=== PATIENT | male | born 1965 | race Caucasian/White ===

== ENCOUNTER 2022-08-08 13:19 | Emergency (ER) | payer OTHER, SELFPAY ==
[2022-08-08 13:26] VITALS: BP 166/99; PULSE 90; RESP 20; TEMP 36.6; O2SAT 98
--- NOTE | 2022-08-08 13:34 | ED.SKABFB ---
HPI - Skin/Abscess/Foreign Bdy General Chief complaint: Skin/Abscess/Foreign Body Stated complaint: left ear bite History of Present Illness HPI narrative: PATIENT PRESENTS WITH INSECT BITE TO LEFT EAR. NO BULLSEYE BUTWAS OUT IN TIMBER AND IS AFRAID HE MAY HAVE BEEN BIT BY A TICK. Related Data Home Medications Medication Instructions Recorded Confirmed levothyroxine 175 mcg tablet mcg 08/08/22 metoprolol succinate 25 mg mg PO 08/08/22 tablet,extended release 24 hr pantoprazole 40 mg tablet,delayed mg PO 08/08/22 release Allergies Allergy/AdvReac Type Severity Reaction Status Date / Time hydromorphone [From Dilaudid] Allergy Dyspnea / Verified 08/08/22 13:31 SOB Review of Systems Review of Systems: CONSTITUTIONAL: DENIES FEVER, CHILLS, OR SWEATS. EYES: DENIES VISUAL CHANGES, REDNESS, OR DISCHARGE. ENT: DENIES RHINORRHEA, CONGESTION, SORE THROAT, OR OTALGIA. CARDIOVASCULAR: DENIES CHEST PAIN, PALPITATIONS, OR EDEMA. RESPIRATORY: DENIES COUGH OR DYSPNEA. GASTROINTESTINAL: DENIES ABDOMINAL PAIN, NAUSEA, VOMITING, OR DIARRHEA. GENITOURINARY: DENIES DYSURIA OR HEMATURIA. SKIN: DENIES RASH OR ITCHING. MUSCULOSKELETAL: DENIES BACK PAIN, JOINT PAIN, OR MYALGIA. NEUROLOGIC: DENIES HEADACHE, NUMBNESS, OR WEAKNESS. PSYCHIATRIC: DENIES ANXIETY OR DEPRESSION. PMFSH Comments AT TIME OF SIGNATURE, AGREE WITH NURSING PAST MEDICAL, SURGICAL, SOCIAL AND FAMILY HISTORY. THERE IS NO RELEVANT FAMILY HISTORY PERTINENT TO THE PRESENTING COMPLAINT Exam Narrative: GENERAL: WELL-APPEARING, WELL-NOURISHED, AND IN NO ACUTE DISTRESS. HEAD: NORMOCEPHALIC, ATRAUMATIC. EYES: PERRLA AND EOMI. ENT: NARES CLEAR, NO RHINORRHEA OR EPISTAXIS. MUCOUS MEMBRANES MOIST. NECK: SUPPLE. CHEST: CLEAR TO AUSCULTATION. NO RESPIRATORY DISTRESS. HEART: REGULAR RATE AND RHYTHM. NO MURMUR HEARD. NORMAL PERIPHERAL PULSES. ABDOMEN: SOFT, NONTENDER, NONDISTENDED, NORMAL ACTIVE BOWEL SOUNDS. EXTREMITIES: NORMAL RANGE OF MOTION. NO EDEMA. SKIN: WARM, DRY, NO RASH. UPPER EDGE OF LEFT PINNA EDEMATOUS CONSISTNT WITH INFECTED INSECT BITE NO DRAINAGE AND NO STREAKING NEURO: NO FOCAL DEFICITS. ALERT AND ORIENTED X3. JENNIFER COMA SCALE EYE OPENING: SPONTANEOUS 4 JENNIFER COMA SCALE MOTOR: OBEYS COMMANDS 6 JENNIFER COMA SCALE VERBAL: ORIENTED 5 JENNIFER COMA SCALE TOTAL 15 Course Course Level of Care: Express Care Visit Vital Signs Vital signs: Vital Signs Temperature 36.6 C 08/08/22 13:26 Pulse Rate 90 08/08/22 13:26 Respiratory Rate 20 08/08/22 13:26 Blood Pressure 166/99 H 08/08/22 13:26 Pulse Oximetry 98 08/08/22 13:26 Oxygen Delivery Room Air 08/08/22 13:26 Temperature 36.6 C 08/08/22 13:26 Pulse Rate 90 08/08/22 13:26 Respiratory Rate 20 08/08/22 13:26 Blood Pressure 166/99 H 08/08/22 13:26 Pulse Oximetry 98 08/08/22 13:26 Oxygen Delivery Room Air 08/08/22 13:26 PLEASE TEA SCHEDULE A FOLLOWUP VISIT WITH YOUR PERSONAL PHYSICIAN FOR FURTHER EVALUATION AND TREATMENT. INCLUDING RECHECK AND DISCUSSION OF YOUR BLOOD PRESSURE. IF YOUR SYMPTOMS PERSIST, CHANGE OR WORSEN SIGNIFICANTLY BEFORE YOU CAN CONTACT YOUR PERSONAL PHYSICIAN THEN PLEASE, WITHOUT DELAY, GO TO THE EMERGENCY DEPARTMENT FOR FURTHER EVALUATION Discharge Plan Discharge Clinical Impression: Insect bites, Cellulitis Patient Disposition: Home, Self-Care Condition: Stable Instructions: Antibiotic Form, Insect Bite or Sting (ED) Additional Instructions: MEDICATION PRESRIBED WARM EPSOM SALT SOAKS TO AREA DISCUSSED FOLLOW UP WITH PCP FOR RE EVALUATION IF ANY NEW OR WORSENING OF SYMPTOMS GO TO ER IMMEDIATELY Prescriptions: New doxycycline monohydrate 100 mg capsule 100 mg PO BID 7 Days Qty: 14 0RF No Action levothyroxine 175 mcg tablet pantoprazole 40 mg tablet,delayed release (DR/EC) PO metoprolol succinate 25 mg tablet extended release 24 hr PO Follow-up/Referrals:
== END 2022-08-08 13:43 | disposition home or self-care (01) ==
PROVIDERS: Emergency Provider Nurse Practitioner Family; PCP Internal Medicine
DX: S00.462A Insect bite (nonvenomous) of left ear, initial encounter (principal); H60.12 Cellulitis of left external ear; W57.XXXA Bitten or stung by nonvenomous insect and other nonvenomous arthropods, initial encounter
CPT/HCPCS: 99213; G0463

== ENCOUNTER 2023-01-24 08:11 | Emergency (ER) | payer OTHER, SELFPAY ==
[2023-01-24 08:21] VITALS: BP 149/97; PULSE 83; RESP 18; TEMP 36.6; O2SAT 100
[2023-01-24 08:26] VITALS: BP 149/97; PULSE 83; RESP 18; TEMP 36.6; O2SAT 100
--- NOTE | 2023-01-24 08:33 | ED.GENADULT ---
HPI - General Adult General Chief complaint: Dental/Oral Stated complaint: tooth pain Source: patient Mode of arrival: ambulatory Limitations: no limitations History of Present Illness HPI narrative: Patient presents for right sided facial swelling since yesterday. Swelling is along the right mandible. Denies any fever, chills, nausea, vomiting, sinus congestion/drainage or dental pain per se. However he feels as though he has a dental infection. He took tylenol for his symptoms. He does not smoke. Related Data Home Medications Medication Instructions Recorded Confirmed levothyroxine 175 mcg tablet 175 mcg PO DAILY 08/08/22 metoprolol succinate 25 mg 25 mg PO DIRECTED 08/08/22 tablet,extended release 24 hr pantoprazole 40 mg tablet,delayed 40 mg PO DIRECTED 08/08/22 release Allergies Allergy/AdvReac Type Severity Reaction Status Date / Time hydromorphone [From Dilaudid] Allergy Dyspnea / Verified 01/24/23 08:25 SOB Review of Systems Review of Systems: CONSTITUTIONAL: Denies fever, chills, or sweats. EYES: Denies visual changes, redness, or discharge. ENT: Reports right sided facial swelling. Denies rhinorrhea, dental pain, congestion, sore throat, or otalgia. CARDIOVASCULAR: Denies chest pain, palpitations, or edema. RESPIRATORY: Denies cough or dyspnea. GASTROINTESTINAL: Denies abdominal pain, nausea, vomiting, or diarrhea. GENITOURINARY: Denies dysuria or hematuria. SKIN: Denies rash or itching. MUSCULOSKELETAL: Denies back pain, joint pain, or myalgia. NEUROLOGIC: Denies headache, numbness, dizziness, or weakness. PSYCHIATRIC: Denies anxiety or depression. [facility] Past Medical History Medical History Esophageal cancer Thyroid disorder Surgical History Surgical History No pertinent past surgical history Family History Family History Mother No problems noted. Social History Social History Smoking status: Never smoker Substance use: never Gender identity (if verbalized by the patient): Male Spiritual care concerns: No Exam Narrative: GENERAL: Well-appearing, well-nourished, and in no acute distress. HEAD: Normocephalic, atraumatic. EYES: PERRLA and EOMI. ENT: Nares clear, no rhinorrhea or epistaxis. Mucous membranes moist. Oropharynx without tonsillar hypertrophy exudate or other lesions. There is swelling along the right mandible. No trismus. I do not appreciate any dental fracture, visible/palpable abscess. Bilateral TMs pearly delgadillo nonbulging NECK: Supple. No adenopathy or masses. No carotid bruits or JVD CHEST: Clear to auscultation. No respiratory distress. No wheezes rales or rhonchi HEART: Regular rate and rhythm. No murmur heard. Normal peripheral pulses. ABDOMEN: Soft, nontender, nondistended, normal active bowel sounds. EXTREMITIES: Normal range of motion. No edema. SKIN: Warm, dry, no rash. NEURO: No focal deficits. Alert and oriented x3. PSYCH: Normal mood and affect. Course Course Emergency Course: This is a 58-year-old male who presented for evaluation of right-sided facial swelling. I do not appreciate an abscess on exam. He has responded well to PCN in the past so will provide a script for that. He denies any pain. He may take ibuprofen for swelling. Follow up with dentist and primary care provider. Go to the ER for worsening symptoms. Pt in agreement with plan of care. Level of Care: Express Care Visit Vital Signs Vital signs: Vital Signs Temperature 36.6 C 01/24/23 08:21 Pulse Rate 83 01/24/23 08:21 Respiratory Rate 18 01/24/23 08:21 Blood Pressure 149/97 H 01/24/23 08:21 Pulse Oximetry 100 01/24/23 08:21 Oxygen Delivery Room Air 01/24/23 08:21 Tempera
== END 2023-01-24 08:36 | disposition home or self-care (01) ==
PROVIDERS: Emergency Provider Nurse Practitioner; PCP Internal Medicine
DX: K04.7 Periapical abscess without sinus (principal); Z85.01 Personal history of malignant neoplasm of esophagus; E07.9 Disorder of thyroid, unspecified
CPT/HCPCS: 99213; G0463

== ENCOUNTER 2023-03-24 08:16 | Emergency (ER) | payer OTHER, SELFPAY ==
[2023-03-24 08:23] VITALS: BP 150/100; PULSE 82; RESP 16; TEMP 36.5; O2SAT 100
--- NOTE | 2023-03-24 08:25 | ED.GENADULT ---
HPI - General Adult General Chief complaint: Dental/Oral Stated complaint: Toothache Source: patient, RN notes reviewed and old records reviewed Mode of arrival: ambulatory Limitations: no limitations History of Present Illness HPI narrative: 58-year-old male patient presents to [facility] with complaints of right lower jaw swelling, pain that started 2-3 days ago. Patient states has noted dental issue does have a dentist appointment on April 07. Patient states dentist wanted anything with infection MD complaint: dental pain Onset (ago): day(s) (2-3) Related Data Home Medications Medication Instructions Recorded Confirmed levothyroxine 175 mcg tablet 175 mcg PO DAILY 08/08/22 metoprolol succinate 25 mg 25 mg PO DIRECTED 08/08/22 tablet,extended release 24 hr pantoprazole 40 mg tablet,delayed 40 mg PO DIRECTED 08/08/22 release Allergies Allergy/AdvReac Type Severity Reaction Status Date / Time hydromorphone [From Dilaudid] Allergy Dyspnea / Verified 01/24/23 08:25 SOB Review of Systems Constitutional: Constitutional: Reports no additional constitutional complaints, Denies body ache(s), Denies chills, Denies fatigue, Denies fever(s) and Denies headache(s) Eyes: Eyes: Reports no additional eye complaints and Denies blurry vision ENT: Reports system reviewed and no additional complaints, except as documented, Reports dental pain, Denies vertigo, Denies dizziness, Denies ear discharge, Denies otalgia, Denies facial pain, Denies headache(s), Reports mouth pain, Denies nasal congestion, Denies nasal discharge, Denies sinus pain, Denies sinus pressure and Denies sore throat Cardiovascular: Cardiovascular: Reports no additional cardiovascular complaints, Denies chest pain, Denies chest pain at rest, Denies rapid heart rate and Denies dyspnea Respiratory: Respiratory: Reports no additional respiratory complaints, Denies chest congestion, Denies cough, Denies pain on inspiration, Denies pain with cough and Denies dyspnea Gastrointestinal: Gastrointestinal: Denies abdominal pain, Denies diarrhea, Denies nausea and Denies vomiting Integumentary/Breasts: Skin/Breast: Denies rash Neurologic: Reports system reviewed and no additional complaints, except as documented, Denies vertigo, Denies dizziness and Denies headache(s) Endocrine: Endocrine: Denies fatigue [facility] Past Medical History Medical History Esophageal cancer Thyroid disorder Surgical History Surgical History No pertinent past surgical history Family History Family History Mother No problems noted. Social History Social History Smoking status: Never smoker Substance use: never Gender identity (if verbalized by the patient): Male Spiritual care concerns: No Comments At the time of my signature, I reviewed and agree with the nursing past medical, surgical, social, and family history. There is no relevant family history pertinent to the patient complaint. Exam Const: General: cooperative, healthy appearing, no acute distress and well nourished Nutritional Appearance: well nourished Orientation/consciousness: patient oriented x3 Limitations: no limitations HENMT: Head: normal to inspection and normocephalic Ears: external ears normal, TM's normal bilaterally, mastoids normal and Abnormal EAC present Face/Nose/Sinus: normal facial exam Face and sinus: normal facial exam Mouth: Yes Normal oral and palatal mucosa present, Yes oropharynx normal and Yes moist mucous membranes Teeth and gingiva: abnormal tooth and associated gingiva (gingiva swelling at #30) Teeth image: 1. swelling Throat: posterior oropharynx normal, tonsils normal, uvula midline and no uvular edema Eyes: General: appear
== END 2023-03-24 09:03 | disposition home or self-care (01) ==
PROVIDERS: Emergency Provider Registered Nurse; PCP Internal Medicine
DX: K04.7 Periapical abscess without sinus (principal); E03.9 Hypothyroidism, unspecified; I10 Essential (primary) hypertension; Z85.01 Personal history of malignant neoplasm of esophagus
CPT/HCPCS: 99213; G0463

== ENCOUNTER 2023-06-22 07:23 | Outpatient (CLI) | payer OTHER, SELFPAY ==
--- NOTE | 2023-06-24 10:10 | WPDHOMESLEEP ---
Sleep Study - Home Unattended Date of Study: 06/22/23 Ordering Provider: Paco Hines DO Interpreting Provider: Janelle Guzman MD Home Sleep Study Type: Watch PAT Height: 1.75 m Weight: 92.986 kg Body Mass Index: 30.2 Neck Circumference (inches): 16.5 [place]: 9 Reason for Sleep Study Difficulty falling asleep and staying asleep Sleep History Haider Khan is a 58-year-old man with difficulty getting to sleep and staying asleep. There is a history of sleep disorders in the family, brother and sister have sleep apnea. He rarely awakens from sleep feeling short of breath. He frequently wakes at night with heartburn, belching or coughing.??He rarely snores, never snores loudly enough that others complain. He never has trouble sleeping when he has a cold. He never wakes up gasping for breath during the night. He rarely has breathing problems at night reported to him by others. He never sweats excessively at night. He occasionally notices his heart pounding or beating irregularly during the night. He occasionally falls asleep during the day. He never falls asleep involuntarily, never falls asleep while driving. He never experiences loss of muscle tone with strong emotion. 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 He never feels paralyzed on waking or falling asleep. He occasionally experiences vivid dreams upon waking or falling asleep. He never feels afraid of going to sleep. He occasionally has nightmares. He occasional recalls his dreams. He frequently has thoughts racing through his mind. He never feels sad or depressed. He occasionally feels anxiety. He occasionally notices parts of his body jerk. He rarely kicks during the night. He rarely feels crawling or aching feelings in his legs. He rarely feels leg pain at night. He never has morning jaw pain nor does he grind his teeth at night. He frequently feels bothered by pain during the day, rarely awakened by pain during the night. He frequently wakes up feeling stiff in the morning, and he frequently wakes feeling sore or achy. He frequently awakens with pain in his neck, spine, or joints. Normal bedtime is 8:00 p.m., falling asleep within an hour or longer, waking between 6 and 10 times during the night, staying awake 5 minutes. When he awakens at night he tries to go back to sleep and often is able to do so within 5 minutes. His normal wake time is 5:00 a.m.. On weekends, his bedtime is 10:00 p.m. and his wake time is 7:00 a.m.. He does not take naps in the afternoon or evening. A short nap lasting 10-15 minutes is not refreshing. He is usually drowsy for 2 hours after waking. He feels better in the afternoon compared to other times of day. Habits:??Tobacco: Never Caffeine: 4 servings per day. Alcohol: none Recreational substances: none [facility] Past Medical History Medical History BMI 31.0-31.9,adult Esophageal cancer Essential hypertension, benign GERD with esophagitis Thyroid disorder Surgical History Surgical History Hx of esophagectomy No pertinent past surgical history Family History Family History Mother Thyroid cancer Diabetes mellitus Hypertension Heart disease Father COPD (chronic obstructive pulmonary disease) Acute myocardial infarction Sibling COPD (chronic obstructive pulmonary disease) Acute myocardial infarction Bleeding in brain due to brain aneurysm Sibling Diabetes mellitus Social History Social History Smoking status: Former smoker Second hand tobacco smoke exposure: Yes Alcohol intake: never Substance use: never Substance use type: does not use Do You Feel Safe in your Home?: Yes Lack of Transportation: No [place]
[2023-06-24 11:46] VITALS: BMI 30.2
== END 2023-06-23 13:40 | disposition home or self-care (01) ==
PROVIDERS: PCP Family Medicine; Visit Provider Internal Medicine Cardiovascular Disease
DX: G47.10 Hypersomnia, unspecified (principal)
CPT/HCPCS: 95800; 95806

== ENCOUNTER 2023-06-24 07:59 | Outpatient (CLI) | payer OTHER, SELFPAY ==
--- NOTE | ~2023-06-24 | NM_ITS ---
EXAMINATION: NM loco stress w perfusion DATE: 06/24/2023 12:37 INDICATION: Atrial flutter. TECHNIQUE: Rest images were obtained following intravenous administration of 9.08 mCi Tc99m tetrofosm in (Myoview). The patient was infused intravenously with Lexiscan (regadenoson). Then, 29.0 mCi Tc99m tetrofosmin (Myoview) was administered intravenously, and supine and prone stress images were obtain ed. Data was reconstructed into short axis and horizontal and vertical long axis SPECT images. Gated SPECT images were also obtained. COMPARISON: None. FINDINGS: There is no definite reversible or fixed perfusion abnormality to suggest ischemia or infar ction. There is no segmental wall motion abnormality. Left ventricular ejection fraction measures > 70%. IMPRESSION: 1. No definite ischemia or infarct. 2. Normal left ventricular ejection fraction measuring >70%. Reviewed, dictated and finalized at location A.
--- NOTE | 2023-06-24 08:45 | ECHO_ITS ---
Patient Info Name: Haider Khan Age: 58 years : 1965 Gender: Male Ht: 69 in Wt: 205 lbs BSA: 2.15 m2 HR: 65 bpm BP: 157 / 123 mmHg Technical Quality: Fair Exam Date: 06/24/2023 8:59 AM Exam Location: Echo Lab Patient Status: Outpatient Admit Date: 06/24/2023 Staff Ordering Physician: Paco Hines DO Attending Provider: Paco Hines DO Referring Physician: Donny HAYS; Exam Type: CA echo dop color flow w con Study Info Indications - I48.92 Atrial Flutter Complete two-dimensional, color flow and Doppler transthoracic echocardiogram is performed. Summary 1. Complete two-dimensional, color flow and Doppler transthoracic echocardiogram is performed. 2. Left ventricular chamber dimension is normal. 3. Left ventricular systolic function is normal, estimated at 60-65%. 4. The left ventricular diastolic function is grade I diastolic dysfunction. 5. E/e' 10 is mildly elevated. 6. Left atrial chamber dimension is moderately enlarged. 7. Right atrial chamber dimension is moderately enlarged. 8. There is mild aortic valve sclerosis. 9. There is mild to moderate aortic valve regurgitation. 10. There is mild to moderate mitral valve regurgitation. 11. There is mild tricuspid valve regurgitation. 12. No pulmonary hypertension, estimated pulmonary arterial systolic pressure is 29 mmHg. 13. There is trace pulmonic regurgitation. Left Ventricle E/e' 10 is mildly elevated. Left ventricular chamber dimension is normal. Left ventricular systolic function is normal, estimated at 60-65%. The left ventricular diastolic function is grade I diastolic dysfunction. Right Ventricle Right ventricular chamber dimension is normal. Right ventricular systolic function is normal. Left Atria Left atrial chamber dimension is moderately enlarged. Right Atria Right atrial chamber dimension is moderately enlarged. Aortic Valve The aortic valve is trileaflet. There is mild aortic valve sclerosis. There is no aortic valve stenosis. There is mild to moderate aortic valve regurgitation. Pulmonic Valve There is trace pulmonic regurgitation. Mitral Valve There is no mitral valve stenosis. There is mild to moderate mitral valve regurgitation. Tricuspid Valve There is mild tricuspid valve regurgitation. No pulmonary hypertension, estimated pulmonary arterial systolic pressure is 29 mmHg. Pericardium/Pleural There is no pericardial effusion. Inferior Vena Cava Normal inferior vena cava with >50% collapse upon inspiration consistent with normal right atrial pressure, 5 mmHg. Aorta The aortic root size at the sinus of Valsalva is normal. Left Ventricular Outflow Tract Name Value Normal LVOT 2D LVOT Diameter 2.03 cm LVOT Doppler LVOT Peak Gradient 2 mmHg LVOT Mean Gradient 1 mmHg LVOT VTI 14.07 cm LVOT VTI/AV VTI Ratio 0.81 LVOT Stroke Volume 45.51 ml LVOT CO 3.62 l/min LVOT CI 1.68 L/min/m2 Pulmonic Valve Name
--- NOTE | 2023-06-24 09:54 | EST_ITS ---
Patient Info Name: Haider Khan Age: 58 years : 1965 Gender: Male Ht: 69 in Wt: 209 lbs BSA: 2.18 m2 HR: 71 bpm BP: 158 / 111 mmHg Heart Rhythm: Atrial Fibrillation Exam Date: 06/24/2023 11:33 AM Exam Location: Echo Lab Patient Status: Outpatient Admit Date: 06/24/2023 Staff Ordering Physician: Paco Hines DO Attending Provider: Paco Hines DO Exercise Technologist: Ronit Rossi CT Exam Type: CA stress loco w NM Study Info Indications I48.1 - Persistent atrial fibrillation A regadenoson stress test was performed. Summary 1. 1. Negative lexiscan stress test for ischemic ST changes by ECG criteria. 2. 2. Baseline hypertension. 3. 3. Nuclear scan to follow and will be reported separately. Please correlate with it. 4. 4. Patient informed of the above results. Protocol: Lexiscan Stress ECG Details Stage: REST Duration (min): 0 min : 53 sec HR (bpm): 74 SBP (mmHg): 158 DBP (mmHg): 111 Stage: REST Duration (min): 11 min : 39 sec HR (bpm): 79 SBP (mmHg): 158 DBP (mmHg): 111 Stage: STAGE 1 Duration (min): 1 min : 0 sec HR (bpm): 88 SBP (mmHg): 157 DBP (mmHg): 101 Stage: RECOVERY Duration (min): 1 min : 0 sec HR (bpm): 84 SBP (mmHg): 157 DBP (mmHg): 101 Stage: RECOVERY Duration (min): 2 min : 0 sec HR (bpm): 76 SBP (mmHg): 157 DBP (mmHg): 101 Stage: RECOVERY Duration (min): 3 min : 0 sec HR (bpm): 79 SBP (mmHg): 149 DBP (mmHg): 99 Stage: RECOVERY Duration (min): 3 min : 17 sec HR (bpm): 81 SBP (mmHg): 149 DBP (mmHg): 99 Rest HR: 79 bpm Peak HR: 103 bpm Rest Sys BP: 158 mmHg Peak Sys BP: 157 mmHg Max Pred HR: 164 bpm % Max Pred HR: 63 % Target HR: 139 bpm Max RPP: 16,171 bpm*mmHg Termination Reason: Completed protocol Cardiac Symptoms: Shortness of breath Total Time: 1 min : 0 sec Rest O[place]a BP: 111 mmHg Peak [place] BP: 101 mmHg Total Dose: 0.4 mg Resting ECG Atrial fibrillation. Stress ECG No ST changes. Arrhythmias None. Report Signatures
== END 2023-06-24 08:00 | disposition home or self-care (01) ==
PROVIDERS: PCP Family Medicine; Visit Provider Internal Medicine Cardiovascular Disease
DX: I48.92 Unspecified atrial flutter (principal); I48.19 Other persistent atrial fibrillation; I34.0 Nonrheumatic mitral (valve) insufficiency; I35.1 Nonrheumatic aortic (valve) insufficiency; I36.1 Nonrheumatic tricuspid (valve) insufficiency
CPT/HCPCS: 78452; 93017; 93306; A9502; C8929; J2785

== ENCOUNTER 2023-10-15 18:06 | Emergency (ER) | payer OTHER, SELFPAY ==
[2023-10-15 18:11] VITALS: BP 130/79; PULSE 89; RESP 20; TEMP 36.3; O2SAT 98
--- NOTE | 2023-10-15 18:12 | ED.SKABFB ---
HPI - Skin/Abscess/Foreign Bdy General Chief complaint: Skin/Abscess/Foreign Body Stated complaint: Tick Check Time Seen by Provider: 10/15/23 18:14 Source: patient, RN notes reviewed and old records reviewed Mode of arrival: ambulatory Limitations: no limitations History of Present Illness HPI narrative: 58-year-old male presents to the [facility] with concerns that he pulled a tick off his right axilla area and left flank area today. Reports the 1 to the left flank area was engorged. Related Data Home Medications Medication Instructions Recorded Confirmed milk thistle 175 mg capsule 175 mg PO DAILY 06/03/23 10/15/23 sildenafil 100 mg tablet 100 mg PO DAILY PRN Sexual Activity 06/03/23 10/15/23 Allergies Allergy/AdvReac Type Severity Reaction Status Date / Time hydromorphone [From Dilaudid] Allergy Dyspnea / Verified 08/06/23 08:28 SOB Review of Systems Review of Systems: All systems reviewed & are unremarkable except as noted in HPI and below Constitutional: Constitutional: Reports no additional constitutional complaints Eyes: Eyes: Reports no additional eye complaints ENT: Reports system reviewed and no additional complaints, except as documented Cardiovascular: Cardiovascular: Reports no additional cardiovascular complaints, Denies chest pain and Denies dyspnea Respiratory: Respiratory: Reports no additional respiratory complaints, Denies chest congestion, Denies cough and Denies dyspnea Gastrointestinal: Gastrointestinal: Reports no additional gastrointestinal complaints, Denies abdominal pain, Denies nausea and Denies vomiting Musculoskeletal: Musculoskeletal: Reports no additional musculoskeletal complaints Integumentary/Breasts: Skin/Breast: Reports as per HPI Neurologic: Reports system reviewed and no additional complaints, except as documented Psychiatric: Psychiatric: Reports no additional psychiatric complaints Allergic/Immunologic: Allergic/Immunologic: Reports no additional allergic/immunologic complaints REPLACED BY [facility] Past Medical History Medical History BMI 31.0-31.9,adult Esophageal cancer Essential hypertension, benign GERD with esophagitis Thyroid disorder Surgical History Surgical History Hx of esophagectomy No pertinent past surgical history Family History Family History Mother Thyroid cancer Diabetes mellitus Hypertension Heart disease Father COPD (chronic obstructive pulmonary disease) Acute myocardial infarction Sibling COPD (chronic obstructive pulmonary disease) Acute myocardial infarction Bleeding in brain due to brain aneurysm Sibling Diabetes mellitus Social History Social History Smoking status: Former smoker Second hand tobacco smoke exposure: Yes Alcohol intake: never Substance use: never Substance use type: does not use Do You Feel Safe in your Home?: Yes Lack of Transportation: No Lack of Food: Never True Current Housing: I Have Housing Concerned About Future Housing: No Difficulty Paying Gas/Electric Bills: No Difficulty Paying for Meds: No Currently Unemployed: No Education: High School Diploma/GED Difficulty w/ Childcare or Family Care: YES Living arrangements: alone Occupation/Education: occupation 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 There is no relevant family history pertinent to the patient complaint. Exam Const: General: cooperative, healthy appearing, comfortable, no acute distress, well developed, alert and well nourish
[2023-10-15 18:22] VITALS: BP 130/79; PULSE 89; RESP 20; TEMP 36.3; O2SAT 98
== END 2023-10-15 18:30 | disposition home or self-care (01) ==
PROVIDERS: Emergency Provider Nurse Practitioner
DX: S40.861A Insect bite (nonvenomous) of right upper arm, initial encounter (principal); S30.861A Insect bite (nonvenomous) of abdominal wall, initial encounter; W57.XXXA Bitten or stung by nonvenomous insect and other nonvenomous arthropods, initial encounter; Z87.891 Personal history of nicotine dependence; I10 Essential (primary) hypertension; K21.00 Gastro-esophageal reflux disease with esophagitis, without bleeding; Z85.01 Personal history of malignant neoplasm of esophagus
CPT/HCPCS: 99213; G0463

== ENCOUNTER 2024-01-19 12:53 | Emergency (ER) | payer OTHER, SELFPAY ==
[2024-01-19 13:01] VITALS: BP 161/92; PULSE 98; RESP 20; TEMP 36.4; O2SAT 100
--- NOTE | 2024-01-19 13:34 | ED_ITS ---
HPI - Male Genitourinary General Chief complaint: Urogenital-Male Stated complaint: hard time urinating/nausea Time Seen by Provider: 01/19/24 13:25 Source: patient, RN notes reviewed and old records reviewed Mode of arrival: ambulatory Limitations: no limitations History of Present Illness HPI Narrative: 59 year old male presents to [facility] care with complaints of right lower abdominal pain/cramping which started this morning with right flank pain, nausea and vomiting and decreased urine output. Patient states he noted noted his urine to be dark in color when he awoke this morning and first voided. He states that he went to work and symptoms have just progressed. Patient reports he can only void a small amount even though he feels like he needs to urinate more. Patient states that he has not had any fevers, chills or sweat, has taken some Tylenol with no improvement in symptoms. MD Complaint: other (right lower abdomen pain, right flank pain, nausea and decreased urine ) Onset (ago): hour(s) (this morning) Radiation: right flank and abdomen (right lower abdomen) Severity scale (1-10): 4 Related Data Home Medications Medication Instructions Recorded Confirmed flecainide 50 mg tablet 50 mg PO DAILY 01/19/24 01/19/24 Allergies Allergy/AdvReac Type Severity Reaction Status Date / Time hydromorphone [From Dilaudid] AdvReac Intermediate Dyspnea / Verified 01/19/24 13:28 SOB Review of Systems Review of Systems: CONSTITUTIONAL: Denies fever, chills, or sweats. CARDIOVASCULAR: Denies chest pain, palpitations, or edema. RESPIRATORY: Denies cough or dyspnea. GASTROINTESTINAL: Reports right flank pain radiating to right lower abdominal pain, positive for nausea, vomiting, no diarrhea. GENITOURINARY: Reports no dysuria, frequency, urgency. Reports right flank pain no visible hematuria. only able to void in small amounts but feels he needs to go more. SKIN: Denies rash or itching. MUSCULOSKELETAL: Denies back pain or myalgia. positive for right CVA tenderness NEUROLOGIC: Denies headache All systems reviewed & are unremarkable except as noted in HPI and below PMFSH Past Medical History Medical History BMI 31.0-31.9,adult Esophageal cancer Essential hypertension, benign GERD with esophagitis Thyroid disorder Surgical History Surgical History Hx of esophagectomy No pertinent past surgical history Family History Family History Mother Thyroid cancer Diabetes mellitus Hypertension Heart disease Father COPD (chronic obstructive pulmonary disease) Acute myocardial infarction Sibling COPD (chronic obstructive pulmonary disease) Acute myocardial infarction Bleeding in brain due to brain aneurysm Sibling Diabetes mellitus Social History Social History Smoking status: Former smoker Second hand tobacco smoke exposure: Yes Alcohol intake: never Substance use: never Substance use type: does not use Do You Feel Safe in your Home?: Yes Lack of Transportation: No Lack of Food: Never True Current Housing: I Have Housing Concerned About Future Housing: No Difficulty Paying Gas/Electric Bills: No Difficulty Paying for Meds: No Currently Unemployed: No Education: High School Diploma/GED Difficulty w/ Childcare or Family Care: YES Living arrangements: alone Occupation/Education: occupation 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 There is no relevant family history pertinent to the presenting complaint Exam Narrative: GENERAL: Well-appearing, well-nourished, and in no acute distress. HEAD: Normocephalic, atraumatic. NECK: Supple.no lymphadenopathy CHEST: Clear to auscultation. No respiratory distress. SAO2 100% on room air HEART: Regular rate and rhythm. No murmur heard. Normal peripheral pulses. ABDOMEN: Soft,tender right lower abdomen no McBurney point tenderness, positive for nausea and vomiting, nondistended, normal active bowel sounds. Positive for right CVA tenderness EXTREMITIES: Normal range of motion. No edema. SKIN: Warm, dry, no rash. NEURO: No focal deficits. Alert and oriented x3., Course Course Emergency Course: Patient is aware of diagnosis, understands and agrees to treatment plan.? Anticipatory guidance given.? Patient agrees to follow-up as directed and is aware of reasons to seek care at the emergency department. Portions of this record may have been created with voice recognition software Level of Care: Express Care Visit Vital Signs Vital signs: Vital Signs Temperature 36.4 C 01/19/24 13:01 Pulse Rate 98 01/19/24 13:01 Respiratory Rate 20 01/19/24 13:01 Blood Pressure 161/92 H 01/19/24 13:01 Pulse Oximetry 100 01/19/24 13:01 Oxygen Delivery Room Air 01/19/24 13:01 Temperature 36.4 C 01/19/24 13:01 Pulse Rate 98 01/19/24 13:01 Respiratory Rate 20 01/19/24 13:01 Blood Pressure 161/92 H 01/19/24 13:01 Pulse Oximetry 100 01/19/24 13:01 Oxygen Delivery Room Air 01/19/24 13:01 Transfer Transfered to: [facility]) Transportation: Other (per private car with friend to ED [facility]) Transfer rationale: Right flank pain with pain to right lower abdomen, blood in urine needs higher level of care. Accepting physician: Dr Rivera Transfer comments: To [facility] per private care with friend MDM - Male Genitourinary MDM Narrative Medical decision making narrative: [id number] Call placed to [facility] with condition update, VS, PMH reviewed with Chris DENT with Dr Rivera accepting patient for transfer. Differential Diagnosis Differential diagnosis: Likely urinary tract infection, urethritis and other (ureterolithiasis, renal colic, ) Medical Records Attestation: I reviewed the patient's medical records. Lab Data Attestation: I reviewed the patient's lab results. Lab results narrative: reviewed urine dip blood 3+, trace protein, specific gravity 1.030 Labs: Lab Results 01/19/24 Range/Units 13:20 POC Urine Color Yellow POC Urine Clarity Clear POC Urine pH 5.5 POC Ur Specif [place] 1.030 POC Urine Protein Trace (Negative) POC Ur Glucose (UA) Negative (Negative) POC Urine Ketones Negative (Negative) POC Urine Blood 3+ (Negative) POC Urine Nitrite Negative (Negative) POC Urine Bilirubin Negative (Negative) POC Urine Urobilinogen 0.2 POC U Leukocyte Esteras Negative (Negative) Discharge Plan Discharge Clinical Impression: Acute right flank pain, Right lower quadrant abdominal pain Patient Disposition: Acute Care Hospital Condition: Stable Prescriptions: No Action flecainide 50 mg tablet 50 mg PO DAILY levothyroxine 150 mcg tablet 150 mcg PO DAILY Qty: 90 0RF metoprolol succinate 50 mg tablet extended release 24 hr 50 mg PO DAILY Qty: 90 3RF aspirin 325 mg tablet,delayed release (DR/EC) 325 mg PO DAILY Qty: 30 0RF pantoprazole 40 mg tablet,delayed release (DR/EC) 40 mg PO DAILY Qty: 90 0RF amlodipine 5 mg tablet See Rx Instructions .ROUTE .COMPLEX Qty: 30 5RF Dose Instruction: Take 1 tablet by mouth once daily Rx Instructions: Take 1 tablet by mouth once daily Follow-up/Referrals: Cristóbal Lozada MD [Primary Care Provider] - Time of Disposition: 13:41 Quality Morrison Coma Scale Eyes: Open Verbal: Oriented and Alert Motor: Follows Commands Suze Coma Total Score: 15
[2024-01-19 13:52] LABS: EDUAAPPEAR Clear; EDUABILI Negative (Negative); EDUABLOOD 3+ (Negative); EDUACOLOR1 Yellow; EDUAGLUCOSE Negative (Negative); EDUAKETONE Negative (Negative); EDUALEUKO Negative (Negative); EDUANITRATE Negative (Negative); EDUAPH 5.5; EDUAPROTEIN Trace (Negative); EDUAUROBILI 0.2
--- NOTE | 2024-01-19 14:37 | PC.NURSE ---
NO UC ORDERED PER PROVIDER
== END 2024-01-19 13:36 | disposition short-term general hospital (02) ==
PROVIDERS: Emergency Provider Registered Nurse; PCP Family Medicine
DX: R10.31 Right lower quadrant pain (principal); R10.9 Unspecified abdominal pain; Z87.891 Personal history of nicotine dependence; I10 Essential (primary) hypertension; K21.00 Gastro-esophageal reflux disease with esophagitis, without bleeding; Z85.01 Personal history of malignant neoplasm of esophagus
CPT/HCPCS: 81003; 99212; G0463

== ENCOUNTER 2024-02-25 10:11 | Outpatient (CLI) | payer OTHER, SELFPAY ==
[2024-02-25 11:24] LABS: Alanine Aminotransferase 31 U/L (6-50); Albumin Level 4.7 g/dL (3.5-5.1); Alkaline Phosphatase 127 U/L (38-126); Anion Gap 5 mmol/L (4-12); Aspartate Amino Transferase 37 U/L (17-59); Bilirubin,Total 0.8 mg/dL (0.2-1.3); Blood Urea Nitrogen 12 mg/dL (9-20); Calcium 9.5 mg/dL (8.4-10.2); Carbon Dioxide 29 mmol/L (22-30); Chloride 104 mmol/L (98-107); Cholesterol 224 mg/dL (0-200); Estimated Glomerular Filt Rate > 60; Glucose 109 mg/dL (65-110); HDL Direct 59 mg/dL; Potassium 4.7 mmol/L (3.4-5.0); Sodium 138 mmol/L (137-145); Triglycerides 171 mg/dL (<150)
[2024-02-25 11:36] LABS: LDL Cholesterol Direct 121 mg/dL
[2024-02-25 12:10] LABS: Thyroid Stimulating Hormone Reflex 0.042 uIU/mL (0.465-4.68)
[2024-02-25 12:59] LABS: Free T4 Free Thyroxine Reflex 1.94 ng/dL (0.78-2.19)
== END 2024-02-25 10:12 | disposition home or self-care (01) ==
PROVIDERS: PCP Family Medicine; Visit Provider Internal Medicine Cardiovascular Disease
DX: E03.9 Hypothyroidism, unspecified (principal); E78.5 Hyperlipidemia, unspecified
CPT/HCPCS: 36415; 80053; 80061; 84439; 84443; 84480

== ENCOUNTER 2024-05-23 14:57 | Outpatient (CLI) | payer OTHER, SELFPAY ==
[2024-05-23 16:43] LABS: Free T4 Free Thyroxine 1.47 ng/dL (0.78-2.19)
[2024-05-23 16:55] LABS: Magnesium 2.2 mg/dL (1.6-2.3)
[2024-05-23 17:25] LABS: Prostate Specific Antigen 3.2 ng/mL (< OR = 4.0); Thyroid Stimulating Hormone 0.818 uIU/mL (0.465-4.680)
== END 2024-05-23 14:58 | disposition home or self-care (01) ==
LOC: ANHLAB 14:59
PROVIDERS: PCP Family Medicine; Visit Provider Nurse Practitioner
DX: E03.9 Hypothyroidism, unspecified (principal); K21.00 Gastro-esophageal reflux disease with esophagitis, without bleeding; C15.9 Malignant neoplasm of esophagus, unspecified; Z12.5 Encounter for screening for malignant neoplasm of prostate
CPT/HCPCS: 36415; 82607; 83735; 84153; 84439; 84443; G0103

== ENCOUNTER 2024-05-29 00:48 | Day surgery (SDC) | payer OTHER, SELFPAY ==
[2024-05-18 14:50] VITALS: BMI 30.2
--- OUTSIDE RECORDS SUMMARY | 2024-05-29 00:51 | XMS_ITS | Encounter Summary ---
Author Organization [facility] Address [address] [place] [address] Phone Care Team Providers Care Automatic Lathe Tender Name Role Phone Vic Villanueva MD Primary Care Provider [phone] Vik Stevens MD Unavailable + Kaiser Mike MD Unavailable [phone] Provider, None Primary Care Provider Unavailabl e Reason for Visit * Reason Comments Medication Refill Encounter Details Date Type Department Care Team (Late st Contact Info) Description 06/18/2021 Refill [facility] - Primary Care - [place] [address] [place] [address] Vic Villanueva MD [address] [place] [address] Medication Refill Social History Tobacco Use Types Packs/Day Years Used Date Smoking Tobacco: Former Cigarettes 3 25 0 11/11/1975 - 11/10/2000 Smokeless Tobacco: Never Alcohol Use Standard Drinks/Week Comments No 0 (1 standard drink = 0.6 oz pur e alcohol) PHQ-2 Answer Date Recorded Total Score - Questions 1-9 0 07/0 11/2020 Sexually Active Control Partners Comments Yes Female Sex and Gender Information Value Date Recorded Sex Assigned at Not on file Legal Sex Male 9:48 PM CDT Gender Identity Not on file Sexual Orientation Not on file COVID-19 Exposure Response Date Recorded In the last month, have you been in contact with someone who was confirmed or suspected to have Coronavirus / COVID-19? No / Unsure 05/19/2021 10:41 AM CHIROPRACTIC NEUROLOGIST documented as of this encounter Miscellaneous Notes * Telephone Encounter - Veronica Christy RN - 06/19/2021 8:03 AM CDT Med d/c'd on 05/19/21. documented in this encounter Plan of Treatment Not on file documented as of this encounter Visit Diagnoses Not on filedocumented in this encounter Additional Health Concerns Assessment Noted Time PHQ-9 Depression Total Score: 0 09/28/19 21 8:00 AM CDT documented as of this encounter Care Teams Automatic Lathe Tender Relationship Specialty Start Date End Date Vic Villanueva MD [address] [place] [address] PCP - General Internal Medicine 12/04/14 10/14/23 Provider, None [place] PCP - General 01/19/24 Vik Stevens MD [address] [place] [address] Consulting Physician Oncology 10/13/17 Kaiser Mike MD [address] [place] [address] Consulting Physician Cardiovascular Disease - Cardiology 08/19/18 documented as of this encounter
--- OUTSIDE RECORDS SUMMARY | 2024-05-29 00:51 | XMS_ITS | Patient Health Record ---
Author Organization [facility] Address [address] [place] [address] Care Team Providers Care Third Hand Name Role Phone Phil Casarez Primary Care Provider Reason For Referral No Information Immunizations Vaccine Route Administration Date Status Comme nts COVID-19 Moderna 2nd IM Intramuscular 05/30/2020 Administered EUA given. Stephy ent tolerated well. COVID-19 Moderna 1ST IM Intramuscular 05/02/2020 Administered EUA date 0. Screening reviewed and consent signed. Patient tolerated well. Plan Of Treatment No Information Insurance Providers Payer Name Payer Address Payer Phone Subscriber Number Group Number Insured Name Patient Relationship to Insured Coverage Start Date Coverage End Date [facility] [address] [place] [address] [phone] [id number] Haider Khan Self - patient is the insured 1
--- OUTSIDE RECORDS SUMMARY | 2024-05-29 00:52 | XMS_ITS | Clinical Summary ---
Author Organization [facility] Address [address] [facility] [address] [place] [address] Phone Care Team Providers Care Mixologist Name Role Phone Vik Stevens MD Unavailable + Kaiser Mike MD Unavailable [phone] Provider, None Primary Care Provider Unavailabl e Allergies Active Allergy Reactions Criticality Noted Date Comments Hydromorphone Shortness of Breath 01/29/2015 Medications Aspirin 81 MG Tablet Take 81 mg by mouth daily. Active Acetaminophen (TYLENOL EXTRA STRENGTH PO) Take by mouth. Ac tive famotidine (PEPCID) 20 MG Tablet Take 1 Tab by mouth 2 times daily. 30 Tab 0 Active sildenafil citrate (VIAGRA) 100 MG Tablet TAKE 1 TABLET BY MOUTH NEEDED FOR ERECTILE DYSFUNCTION 10 Tablet 2 3 Active metoprolol Succinate (TOPROL-XL) 25 MG TABLET SR 24 HR Take 1 tablet by mouth once daily 90 Tablet 3 3 Active pantoprazole (PROTONIX) 40 MG Tablet Delayed Response TAKE 1 TABLET BY MOUTH EVERY 12 HOURS 180 Tablet 2 3 Active levothyroxine (SYNTHROID) 150 MCG TabletIndicatio ns:Hypothyroidi sm due to acquired atrophy of thyroid Take 1 tablet by mouth once daily 90 Tablet 3 4 Active ondansetron (ZOFRAN) 4 MG Tablet Take 1 Tablet by mouth every 8 hours as needed for Nausea - 1st line. 10 Tablet 4 Active HYDROcodone-camilla taminophen (NORCO) 5-325 MG TabletIndicatio ns:Bladder stone Take 1 Tablet by mouth every 8 hours as needed for Moderate or more severe pain. 12 Tablet Active Active Problems Problem Noted Date Diagnosed Date Atrial flutter 03/22/2017 Esophageal cancer 01/29/2015 Mixed hyperlipidemia Hypothyroidism due to acquired atrophy of thyroi d Hypertension, essential Gastroesophageal reflux disease without esophagi tis Resolved Problems Problem Noted Date Diagnosed Date Resolved Date Flu-like symptoms 04/14/2018 10/15/2021 Encounters Date Type Department Care Team Description 03/07/2024 Refill [facility] - Primary Care - [place] [address] [place] [address] Vic Villanueva MD Medication Refill from Last 3 Months Immunizations Immunization Administration Dates Next Due Covid-19, Mrna, Lnp-s, PF, 1 00 mcg/0.5 mL Dose (Moderna) 05/30/2020,05/02/2020 Influenza Vaccine, Quadrivalent, PF 01/05/2020,0 12/01/2018,01/13/2018 Pneumococcal Vaccine - 13 Valent 09/27/2020 TDAP Vaccine 09/21/2017,10/27/2010 Family History Medical History Relation Name Comments Colon Polyps Brother 1 Diabetes Brother 1 Diabetes Brother 2 Other-comment Brother 2 Brain aneurysm Chronic Obstructive Pulmonary Disease Father Diabetes Maternal Grandfather Diabetes Maternal Grandmother Diabetes Mother Hypertension Mother Thyroid Cancer Mother Other-comment Paternal Cousin AAA Chronic Obstructive Pulmonary Disease Sister Heart Attack Sister Relation Name Status Comments Brother 1 Brother 2 Father Maternal Grandfather Maternal Grandmother Mother Alive Paternal Cousin Alive Sister Social History Tobacco Use Types Packs/Day Years Used Date Smoking Tobacco: Former Cigarettes 3 20.6 1 981 - 11/10/2000 Smokeless Tobacco: Never Alcohol Use Standard Drinks/Week Comments No 0 (1 standard drink = 0.6 oz pur e alcohol) PHQ-2 Answer Date Recorded Total Score - Questions 1-9 0 11/2020 Sexually Active Control Partners Comments Yes Female Sex and Gender Information Value Date Recorded Sex Assigned at Not on file Legal Sex Male 9:48 PM CDT Gender Identity Not on file Sexual Orientation Not on file Last Filed Vital Signs Vital Sign Reading Time Taken Comments Blood Pressure 155/83 01/19/2024 6:45 PM CDT Pulse 87 01/19/2024 6:45 PM CDT Temperature 36.7 C (98 F) 01/19/2024 2:07 PM CDT Respiratory Rate 16 01/19/2024 5:45 PM CDT Oxygen Saturation 100% 01/19/2024 6:45 PM CDT Inhaled Oxygen Concentration - - Weight 93 kg (205 lb) 01/19/2024 2:07 PM CDT Height 175.3 cm (5' 9 ) 01/19/2024 2:07 PM CDT Body Mass Index 30.27 01/19/2024 2:07 PM CDT Plan of Treatment Health Maintenance Due Date Last Done Comments Hepatitis C Virus (HCV) Screening 1965 Hepatitis B Immunization (1 of 3 - 19+ 3-dose series) 1986 Zoster Immunization (1 of 2) 1986 Cologuard 2017 Immunochemical Fecal Occult Blood 2017 SARS-COV-2 Immunization (3 - Moderna risk series) 06/27/2020 05/30/2020, 05/02/2020 Pneumococcal Immunization (5 0+ years) (2 of 2 - PPSV23) 11/22/2020 09/27/2020 Colonoscopy 11/10/2022 11/10/2017, 05/01/2011 Colorectal Cancer Screening 11/10/2022 Influenza Immunization (#1) 11/21/202312/20, 12/01/2018, 01/13/2018 Td Immunization Every 10 Yea rs (Adults With 1 Tdap) 09/22/2027 09/21/2017, 10/27/2010 Respiratory Syncytial Virus (RSV) Immunization (Adult) (1 - 1-dose 75+ series) 2042 11/10/2017 Pneumococcal Immunization Combined Discontinued 09/27/2020 PSA Discussion Completed 10/16/2022 Meningococcal Immunization (ACWY) Aged Out No longer eligible based on patient's age to complete this topic Rotavirus Immunization Aged Out No lo nger eligible based on patient's age to complete this topic Insurance [facility] Care Teams Mixologist Relationship Specialty Start Date End Date Provider, None [place] PCP - General 01/19/24 Vik Stevens MD Consulting Physician Oncology 10/13/17 Kaiser Mike MD Consulting Physician Cardiovascular Disease - Cardiology 08/19/18
--- OUTSIDE RECORDS SUMMARY | 2024-05-29 00:52 | XMS_ITS | Encounter Summary ---
Author Organization [facility] Address [address] [place] [address] Phone Care Team Providers Care Juice Standardizer Name Role Phone Vic Villanueva MD Primary Care Provider [phone] Vik Stevens MD Unavailable + Kaiser Mike MD Unavailable [phone] Provider, None Primary Care Provider Unavailabl e Reason for Visit * Reason Comments Medication Refill Encounter Details Date Type Department Care Team (Late st Contact Info) Description 10/11/2021 Refill [facility] - Primary Care - [place] [address] [place] [address] Vic Villanueva MD [address] [place] [address] Medication Refill Social History Tobacco [...] on file Sexual Orientation Not on file documented as of this encounter Miscellaneous Notes * Telephone Encounter - Vic Villanueva MD - 10/13/2021 10:33 AM CDT Refill request approved. * Telephone Encounter - Sagrario Boss RN - 10/13/2021 8:33 AM CDT Medication failed the protocol, provider to review and approve the medication order if appropriate. Requested Prescriptions Pending Prescriptions Disp Refills levothyroxine (SYNTHROID) 175 MCG Tablet [Pharmacy Med Name: Levothyroxine Sodium 175 MCG Oral Tablet] 90 Tablet 0 Sig: Take 1 tablet by mouth once daily Thyroid Hormones Protocol Failed - 10/11/2021 11:51 AM Failed - Normal TSH in past 12 months TSH Date Value Ref Range Status 09/27/2020 0.242 (L) 0.270 - 4.200 mIU/L Final Passed - Visit with relevant provider in past 12 months or upcoming 90 days Recent Visits Date Type Provider Dept 05/19/21 Office [place] [facility] [place] [facility] Showing recent visits within past 365 days and meeting all other requirements Future Appointments Date Type Provider Dept 10/15/21 Appointment Vic Vill[facility]ue[facility] [place] [facility] [place] [facility] Showing future appointments within next 90 days and meeting all other requirements Signed Prescriptions Disp Refills metoprolol Succinate (TOPROL-XL) 25 MG TABLET SR 24 HR 90 Tablet 0 Sig: Take 1 tablet by mouth once daily Beta-Blockers Protocol Passed - 10/11/2021 11:51 AM Passed - BP on record in the past year Clinician-entered: BP Readings from Last 3 Encounters: 05/19/21 118/78 03/30/21 (!) 142/92 09/27/20 122/78 Patient-entered: No data recorded Passed - Visit with relevant provider in past 12 months or upcoming 90 days Recent Visits Date Type Provider Dept 05/19/21 Office Visit Vic Villanueva MD [facility] Showing recent visits within past 365 days and meeting all other requirements Future Appointments Date Type Provider Dept 10/15/21 Appointment [place] [facility] [place] [facility] [place] [facility] Showing future appointments within next 90 days and meeting all other requirements documented in this encounter Plan of Treatment Not on file documented as of this encounter Visit Diagnoses Not on filedocumented in this encounter Additional Health Concerns Assessment Noted Time PHQ-9 Depression Total Score: 0 09/28/19 21 8:00 AM CDT documented as of this encounter Care Teams Juice Standardizer Relationship Specialty Start Date End Date Vic Villanueva MD [address] [place] [address] PCP - General Internal Medicine 12/04/14 10/14/23 Provider, None [place] PCP - General 01/19/24 Vik Stevens MD [address] [place] [address] Consulting Physician Oncology 10/13/17 Kaiser Mike MD [address] [place] [address] Consulting Physician Cardiovascular Disease - Cardiology 08/19/18 documented as of this encounter
--- OUTSIDE RECORDS SUMMARY | 2024-05-29 00:52 | XMS_ITS | Encounter Summary ---
Author Organization [facility] Address [address] [place] [address] Phone Care Team Providers Care Db2 Developer Name Role Phone Vik Stevens MD Unavailable + Kaiser Mike MD Unavailable [phone] Provider, None Primary Care Provider Unavailabl e Reason for Visit * Reason Comments Medication Refill Encounter Details Date Type Department Care Team (Late st Contact Info) Description 11/27/2023 Refill [facility] - Primary Care - [place] [address] [place] [id number] Vic Villanueva MD [address] [place] [address] Medication Refill Social History Tobacco [...] Telephone Encounter - Veronica Christy RN - 11/29/2023 10:12 AM CDT Patient no longer has a PCP in this office. documented in this encounter Plan of Treatment Not on file documented as of this encounter Visit Diagnoses Not on filedocumented in this encounter Additional Health Concerns Assessment Noted Time PHQ-9 Depression Total Score: 0 09/28/19 21 8:00 AM CDT documented as of this encounter Care Teams Db2 Developer Relationship Specialty Start Date End Date Provider, None [place] PCP - General 01/19/24 Vik Stevens MD Consulting Physician Oncology 10/13/17 Kaiser Mike MD Consulting Physician Cardiovascular Disease - Cardiology 08/19/18 documented as of this encounter
[2024-05-29 08:18] VITALS: BP 145/92; PULSE 67; RESP 16; TEMP 35.9; O2SAT 100
[2024-05-29] MEDS: LACTATED RINGERS 1,000 ML 150 ML IV CONT (08:27)
--- NOTE | 2024-05-29 08:48 | WPDANESEPPF ---
Anes - Initial Pre Proc Eval Procedure: Operation Date: 05/29/24 09:00 Proposed Procedures p Esophagogastroduodenoscopy & Colonoscopy - Aden Vilchis MD Date/Time: 05/29/24 08:48 Surgeon: Aden Vilchis MD Pre Op Diagnosis: Personal hx of adenomatous and serrated colon poly Patient Data Age: 59 Gender: M Height: 1.75 m Weight: 96.7 kg Last Vital Signs Temp 35.9 C L 05/29/24 08:18 Pulse 67 05/29/24 08:18 Resp 16 05/29/24 08:18 BP 145/92 H 05/29/24 08:18 Pulse Ox 100 05/29/24 08:18 O2 Del Method Room Air 05/29/24 08:18 Allergies Allergy/AdvReac Type Severity Reaction Status Date / Time hydromorphone (From Dilaudid) AdvReac Intermediate Dyspnea / Verified 05/29/24 08:15 SOB Home Medications ?Medication ?Instructions ?Recorded ?Confirmed ?Type aspirin 325 mg tablet,delayed 325 mg PO DAILY #30 tabs 06/04/23 05/29/24 Rx release flecainide 50 mg tablet 50 mg PO DAILY 01/19/24 05/29/24 History amlodipine 5 mg tablet See Rx Instructions .Route 01/20/24 05/29/24 Rx .COMPLEX #30 tabs milk thistle 150 mg capsule 175 mg PO DAILY 02/25/24 05/29/24 History dexlansoprazole 60 mg 60 mg PO DAILY #90 caps 02/29/24 05/29/24 Rx capsule,biphase delayed release (Dexilant) metoprolol succinate 50 mg 50 mg PO DAILY #90 tabs 05/15/24 05/29/24 Rx tablet,extended release 24 hr levothyroxine 150 mcg tablet 150 mcg PO DAILY #90 tabs 05/29/24 Rx Patient hx anesthesia problems: none Family hx anesthesia problems: other (slow to awaken) Results Review: All pre-operative results and documents have been reviewed as part of the pre-operative evaluation. [facility] Past Medical History Medical History GERD (gastroesophageal reflux disease) Essential hypertension, benign GERD with esophagitis BMI 31.0-31.9,adult Esophageal cancer Thyroid disorder Surgical History Surgical History Hx of esophagectomy No pertinent past surgical history Family History Family History Mother Thyroid cancer Diabetes mellitus Hypertension Heart disease Father COPD (chronic obstructive pulmonary disease) Acute myocardial infarction Sibling COPD (chronic obstructive pulmonary disease) Acute myocardial infarction Bleeding in brain due to brain aneurysm Sibling Diabetes mellitus Social History Social History Smoking status: Former smoker Tobacco type: cigarettes Second hand tobacco smoke exposure: Yes Smoking end date: 03/22/94 Alcohol intake: never Substance use: never Substance use type: does not use Do You Feel Safe in your Home?: Yes Lack of Transportation: No Lack of Food: Never True Current Housing: I Have Housing Concerned About Future Housing: No Difficulty Paying Gas/Electric Bills: No Difficulty Paying for Meds: No Currently Unemployed: No Education: High School Diploma/GED Difficulty w/ Childcare or Family Care: YES Living arrangements: alone Occupation/Education: occupation 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 Informed Consent: The patient's anesthetic plan and its attendant risks and benefits were discussed with the patient/family/POA. Questions were solicited and answers provided to the satisfaction of the patient/family/POA.
--- NOTE | 2024-05-29 08:48 | WPDHPUPDATE1 ---
History and Physical Update Update Date/Time: 05/29/24 08:48 History and Physical has been reviewed, including an updated exam of the patient. There are NO changes in the patient's condition. Risks, benefits, and alternatives have been discussed and questions answered. Patient agrees to proceed with procedure.
--- NOTE | 2024-05-29 08:54 | SUR.OPER ---
EGD: [id number] COLON: 0901
[2024-05-29 09:16] VITALS: BP 151/105; PULSE 70; RESP 18; O2SAT 100
[2024-05-29 09:26] VITALS: BP 105/75; PULSE 76; RESP 18; O2SAT 100
[2024-05-29 09:36] VITALS: PULSE 66; RESP 21; O2SAT 100
== END 2024-05-29 09:54 | disposition home or self-care (01) ==
PROVIDERS: PCP Family Medicine; Referring Provider Nurse Practitioner; Visit Provider Internal Medicine Gastroenterology
PROC: 0DJ08ZZ Inspection of Upper Intestinal Tract, Via Natural or Artificial Opening Endoscopic (ICD-10-PCS; CPT 45378; principal; 2024-05-29 09:00)
DX: Z12.11 Encounter for screening for malignant neoplasm of colon (principal); D12.3 Benign neoplasm of transverse colon; D12.4 Benign neoplasm of descending colon; K57.30 Diverticulosis of large intestine without perforation or abscess without bleeding; K64.8 Other hemorrhoids; K21.00 Gastro-esophageal reflux disease with esophagitis, without bleeding; Z85.01 Personal history of malignant neoplasm of esophagus; Z92.3 Personal history of irradiation; Z92.21 Personal history of antineoplastic chemotherapy; Z90.49 Acquired absence of other specified parts of digestive tract; Z98.0 Intestinal bypass and anastomosis status; Z87.891 Personal history of nicotine dependence; E66.9 Obesity, unspecified; Z68.31 Body mass index [BMI] 31.0-31.9, adult
CPT/HCPCS: 45380; 45385; 43239; 88305; J2004; J2704; J7120

== ENCOUNTER 2024-11-27 15:15 | Outpatient (CLI) | payer OTHER, SELFPAY ==
--- NOTE | ~2024-11-27 | XR_ITS ---
EXAMINATION: XR abdomen/kub 1V, 11/27/2024 15:24 CDT HISTORY: N20.0 - Calculus of kidney COMPARISON: No comparisons available. Technique: 3 view. Findings: Bowel gas pattern unremarkable. No obstruction. No free air. No abnormal calcifications No acute osseous abnormality. Impression: 1. No acute abnormality. Reviewed, dictated and finalized at location A. Impression: 1. No acute abnormality.
--- NOTE | ~2024-11-27 | CT_ITS ---
EXAMINATION: CT abdomen pelvis wo antonio, 11/27/2024 16:14 CDT HISTORY: N20.0 - Calculus of kidney COMPARISON: No comparisons available. TECHNIQUE: CT scan of the abdomen and pelvis was performed without IV contrast. One or more of the following dose reduction techniques were used: automated exposure control, adjustment of the mA and/or kV according to patient size, use of iterative reconstruction technique. Unless otherwise stated, incidental findings do not require dedicated follow up imaging FINDINGS: CT abdomen: LUNG BASES: Elevation left hemidiaphragm with bibasilar areas of atelectasis. LIVER: Punctate calcified liver granulomas. SPLEEN: Unremarkable, no splenomegaly. KIDNEYS: Right Kidney: Unremarkable. No calculi. No hydronephrosis. Left Kidney: Unremarkable. No calculi. No hydronephrosis ADRENAL GLANDS: Unremarkable. PANCREAS: There is heterogeneity noted of the pancreatic head, an underlying pancreatic lesion is not excluded. GALLBLADDER/BILIARY: Unremarkable. No biliary dilatation. STOMACH AND ESOPHAGUS: Postsurgical changes noted in the stomach. BOWEL/MESENTERY: Moderate diverticulosis, no colitis or diverticulitis. Appendix normal. Mesentery normal. Small bowel normal. Most of the transverse colon is displaced into the left hemithorax. ADENOPATHY/RETROPERITONEUM: No lymphadenopathy. AORTA/VASCULATURE: Normal caliber aorta. FREE FLUID OR FREE AIR: No free fluid.. CT pelvis: SOLID ORGANS/REPRODUCTIVE: Prostate enlarged, correlate with PSA. BLADDER: Within normal limits. OSSEOUS STRUCTURES: Punctate scattered probable sclerotic bone islands. OVERLYING SOFT TISSUES: Unremarkable. IMPRESSION: 1. No renal calculi or hydronephrosis identified. 2. Questionable pancreatic lesion. Contrast-enhanced MRI is recommended. 3. Incidental findings above Reviewed, dictated and finalized at location A.
--- NOTE | ~2024-11-27 | XR_ITS ---
EXAMINATION: XR chest 2V, 11/27/2024 15:24 CDT HISTORY: R91.1 - Solitary pulmonary nodule COMPARISON: No comparisons available. Technique: 2 views obtained. Findings: Questionable lung nodule right upper lobe 2 x 2 centimeters and incompletely evaluated. Nonspecific elevation left hemidiaphragm. No pneumothorax. Moderate cardiomegaly. Moderate hiatal hernia noted. Bony thorax no acute abnormality. Impression: Right lung nodule. CT chest with contrast recommended Reviewed, dictated and finalized at location A. Impression: Right lung nodule. CT chest with contrast recommended
--- OUTSIDE RECORDS SUMMARY | 2024-11-27 15:17 | XMS_ITS | Encounter Summary ---
Author Organization [facility] Address [address] [place] [address] Phone Care Team Providers Care Document Processor Name Role Phone Vic Villanueva MD Primary Care Provider [phone] Vik Stevens MD Unavailable Unava ilable Kaiser Mike MD Unavailable [phone] Provider, None Primary Care Provider UnavailCristóbal Slater MD Primary Care Provider [phone] Reason for Visit * Reason Comments Medication Refill Encounter Details Date Type Department Care Team (Late st Contact Info) Description 06/18/2021 Refill [facility] - Primary Care - [place] [address] [place] [address] Vic Villanueva MD [address] [place] [address] Medication Refill Social History Tobacco [...] COVID-19? No / Unsure 05/19/2021 10:41 AM OVERLOCKER documented as of this encounter Miscellaneous Notes [...] documented as of this encounter Care Teams Document Processor Relationship Specialty Start Date End Date Vic Villanueva MD [address] [place] [address] PCP - General Internal Medicine 12/04/14 10/14/23 Provider, None [place] PCP - General 01/19/24 09/21/24 Cristóbal Lozada MD [address] [place] [address] PCP - General Family Medicine 09/22/24 Vik Stevens MD [address] [place] [address] Consulting Physician Oncology 10/13/17 Kaiser Mike MD [address] [place] [address] Consulting Physician Cardiovascular Disease - Cardiology 08/19/18 documented as of this encounter
--- OUTSIDE RECORDS SUMMARY | 2024-11-27 15:17 | XMS_ITS | Encounter Summary ---
Author Organization [facility] Address [address] [place] [address] Phone Care Team Providers Care Enhanced Environmental Operator Name Role Phone Vik Stevens MD Unavailable Unava Kaiser Dawkins MD Unavailable [phone] Provider, None Primary Care Provider UnavailCristóbal Slater MD Primary Care Provider [phone] Reason for Visit * Reason Comments Medication Refill Encounter Details Date Type Department Care Team (Late st Contact Info) Description 11/27/2023 Refill [facility] - Primary Care - [place] [address] [place] [address] Vic Villanueva MD [address] [place] [address] Medication Refill Social History Tobacco Use Types Packs/Day Years Used Date Smoking Tobacco: Former Cigarettes 3 20.6 1 981 - 11/10/2000 Smokeless Tobacco: Never Alcohol Use Standard Drinks/Week Comments No 0 (1 standard drink = 0.6 oz pur e alcohol) PHQ-2 Answer Date Recorded Total Score - Questions 1-9 0 /0 11/2020 Sexually Active Control Partners Comments Yes [...] documented as of this encounter Care Teams Enhanced Environmental Operator Relationship Specialty Start Date End Date Provider, None [place] PCP - General 01/19/24 09/21/24 Cristóbal Lozada MD [address] [address] PCP - General Family Medicine 09/22/24 Vik Stevens MD Consulting Physician Oncology 10/13/17 Kaiser Mike MD Consulting Physician Cardiovascular Disease - Cardiology 08/19/18 documented as of this encounter
--- OUTSIDE RECORDS SUMMARY | 2024-11-27 15:17 | XMS_ITS | Patient Health Record ---
Author Organization [facility] Address [address] [place] [address] Care Team Providers Care Machined Parts Quality Inspector Name Role Phone Phil Casarez Primary Care Provider Reason For Referral No Information Immunizations Vaccine Route Administration Date Status Comme nts COVID-19 Moderna 1ST IM Intramuscular 05/02/2020 Administered EUA date 0. Screening reviewed and consent signed. Patient tolerated well. COVID-19 Moderna 2nd IM Intramuscular 05/30/2020 Administered EUA given. Stephy ent tolerated well. Plan Of Treatment No Information Insurance Providers Payer Name Payer Address Payer Phone Subscriber Number Group Number Insured Name Patient Relationship to Insured Coverage Start Date Coverage End Date [facility] [address] [place] [address] [phone] [id number] Haider Khan Self - patient is the insured
--- OUTSIDE RECORDS SUMMARY | 2024-11-27 15:18 | XMS_ITS | Encounter Summary ---
Author Organization [facility] Address [address] [place] [address] Phone Care Team Providers Care Satellite Television Installer Name Role Phone Vic Villanueva MD Primary Care Provider [phone] Vik Stevens MD Unavailable Unava ilable Kaiser Mike MD Unavailable Provider, None Primary Care Provider UnavailCristóbal Slater MD Primary Care Provider [phone] Reason for Visit * Reason Comments Medication Refill Encounter Details Date Type Department Care Team (Late st Contact Info) Description 10/11/2021 Refill [facility] - Primary Care - [place] [address] [place] [address] Vic Villanueva MD [address] [place] [address] Medication Refill Social History Tobacco [...] Dept 05/19/21 Office Visit Vic Villanueva MD [facility] [place] Showing recent visits within past 365 days and meeting all other requirements Future Appointments Date Type Provider Dept 10/15/21 Appointment Vic Villanueva MD [facility] [place] Showing future appointments within next 90 days [...] Dept 05/19/21 Office Visit Vic Villanueva MD [facility] [place] Showing recent visits within past 365 days and meeting all other requirements Future Appointments Date Type Provider Dept 10/15/21 Appointment Vic Villanueva MD [facility] [place] Showing future appointments within next 90 days and meeting all other requirements documented in this encounter Plan of Treatment Not on file documented as of this encounter Visit Diagnoses Not on filedocumented in this encounter Additional Health Concerns Assessment Noted Time PHQ-9 Depression Total Score: 0 09/28/19 21 8:00 AM CDT documented as of this encounter Care Teams Satellite Television Installer Relationship Specialty Start Date End Date Vic Villanueva MD [address] [place] [address] PCP - General Internal Medicine 12/04/14 10/14/23 Provider, None [place] PCP - General 01/19/24 09/21/24 Cristóbal Lozada MD [address] [address] PCP - General Family Medicine 09/22/24 Vik Stevens MD [address] [place] [address] Consulting Physician Oncology 10/13/17 Kaiser Mike MD [address] [place] [address] Consulting Physician Cardiovascular Disease - Cardiology 08/19/18 documented as of this encounter
--- OUTSIDE RECORDS SUMMARY | 2024-11-27 15:18 | XMS_ITS | Clinical Summary ---
Author Organization [facility] Address [address] [facility], [facility] [address] [place] [address] Phone Care Team Providers Care Supervisor [employer] Name Role Phone Vik Stevens MD Unavailable Unava Kaiser Dawkins MD Unavailable [phone] Cristóbal Lozada MD Primary Care Provider [phone] Allergies Active Allergy Reactions Criticality Noted Date [...] 2 3 Active levothyroxine (SYNTHROID) 150 MCG TabletIndication s:Hypothyroidism due to acquired atrophy of thyroid Take 1 tablet by mouth once daily 90 Tablet 3 4 Active ondansetron (ZOFRAN) 4 MG Tablet Take 1 Tablet by mouth every 8 hours as needed for Nausea - 1st line. 10 Tablet 4 Active HYDROcodone-acet aminophen (NORCO) 5-325 MG TabletIndication s:Bladder stone Take 1 Tablet by mouth every 8 hours as needed for Moderate or more severe pain. 12 Tablet 4 Active ketorolac (TORADOL) 10 MG Tablet Take 1 Tablet by mouth every 6 hours as needed for Severe pain. 20 Tablet 5 Active tamsulosin (FLOMAX) 0.4 MG Capsule Take 1 Capsule by mouth daily. 90 Capsule 5 Active ondansetron (ZOFRAN-ODT) 4 MG TABLET DISPERSIBLE Take 1 Tablet by mouth every 8 hours as needed for Nausea - 1st line. 10 Tablet 5 Active Active Problems Problem Noted Date Diagnosed Date Atrial flutter 03/22/2017 Esophageal cancer 01/29/2015 Mixed hyperlipidemia Hypothyroidism due to acquired atrophy of thyroi d Hypertension, essential Gastroesophageal reflux disease without esophagi tis Resolved Problems Problem Noted Date Diagnosed Date Resolved Date Flu-like symptoms 04/14/2018 10/15/2021 Encounters Date Type Department Care Team Description 11/15/2024 Telephone [facility] On[facility] Services [address] [place] [address] Germaine Wells RN 09/22/2024 4:11 PM CDT - 09/22/2024 6:24 PM CDT Emergency [facility] Emergency [address] [place] [address] Bailey Egan APRN, MEDICAL RECORDS COORDINATOR Right nephrolithiasis Discharge Disposition: Discharged to home or Selfcare 09/22/2024 Travel from Last 3 Months Immunizations Immunization Administration Dates Next Due Covid-19, Mrna, Lnp-s, Pf, 1 00 Mcg Or 50 Mcg Dose (MODERNA) 05/30/2020,05/02/2020 Influenza Vaccine, Quadrivalent, PF 01/05/2020,0 12/01/2018,01/13/2018 [...] Sign Reading Time Taken Comments Blood Pressure 147/75 09/22/2024 6:23 PM CDT Pulse 72 09/22/2024 6:23 PM CDT Temperature 36.1 C (97 F) 09/22/2024 6:23 PM CDT Respiratory Rate 18 09/22/2024 6:23 PM CDT Oxygen Saturation 98% 09/22/2024 6:23 PM CDT Inhaled Oxygen Concentration - - Weight 95.3 kg (210 lb) 09/22/2024 4:13 PM CDT Height 175.3 cm (5' 9) 09/22/2024 4:13 PM CDT Body Mass Index 31.01 09/22/2024 4:13 PM CDT Plan of Treatment Health Maintenance Due Date Last Done Comments Hepatitis C Virus (HCV) Screening 1965 Hepatitis B Immunization (1 of 3 - 19+ 3-dose series) 1986 Zoster Immunization (1 of 2) 1986 Cologuard 01/17/2012 Immunochemical Fecal Occult Blood 01/17/2012 SARS-COV-2 Immunization (3 - Moderna risk series) 06/27/2020 05/30/2020, 05/02/2020 Pneumococcal Immunization (5 0+ years) (2 of 2 - PPSV23, PCV20, or PCV21) 11/22/2020 09/27/2020 Colonoscopy 11/10/2022 11/10/2017, 05/01/2011 Colorectal Cancer Screening 11/10/2022 Influenza Immunization (#1) 11/20/202412/20, 12/01/2018, 01/13/2018 Td Immunization Every 10 Yea rs (Adults With 1 Tdap) 09/22/2027 09/21/2017, 10/27/2010 Respiratory Syncytial Virus (RSV) Immunization (Adult) (1 - 1-dose 75+ series) 2042 Pneumococcal Immunization Combined Discontinued 09/27/2020 PSA Discussion Completed 10/16/2022 Human Papillomavirus (HPV) Immunization Aged Out No longer eligible based on patient's age to complete this topic Meningococcal Immunization (ACWY) Aged Out No longer eligible based on patient's age to complete this topic Rotavirus Immunization Aged Out No lo nger eligible based on patient's age to complete this topic Procedures Procedure Name Priority Date/Time Associated Diagnosis Comments CT RENAL STONE STUDY (ABDOMEN AND PELVIS W/O CONTRAST) Stat with Interpretation 09/22/2024 4:30 PM CDT CBC WITH AUTO DIFFERENTIAL STAT 09/22/2024 4:25 PM CDT CMP (COMPREHENSIVE METABOLIC PANEL) STAT 09/22/2024 4:25 PM CDT COMPLETE BLOOD COUNT (CBC) WITH DIFF STAT 09/22/2024 4:25 PM CDT URINALYSIS (UA) MACROSCOPIC STAT 09/22/2024 4:20 PM CDT from Last 3 Months Results * CT RENAL STONE STUDY (ABDOMEN AND PELVIS W/O CONTRAST) (09/22/2024 4:30 PM CDT) Anatomical Region Laterality Modality Abdomen N/A Computed Tomogra phy 09/22/2024 4:48 PM CDT Impressions 09/22/2024 4:51 PM CDT IMPRESSION: 1. 3 mm stone at the right ureterovesical junction with mild prominence of the right ureter. No significant right hydronephrosis. 2. Large posterior diaphragmatic hernia containing peritoneal fat and portions of the transverse colon. No evidence of bowel obstruction. 3. Irregular 7 mm density of the right lung base along the pleural surface is not clearly changed from previous. Pulmonary nodule recommendation: Per Fleischner Society Guidelines, follow-up CT of the complete chest after an appropriate interval (3 to 12 months depending on clinical risk) to confirm stability and to evaluate additional findings. Narrative 09/22/2024 4:51 PM CDT EXAM DESCRIPTION: CT RENAL STONE STUDY (ABDOMEN AND PELVIS W/O CONTRAST) REASON FOR STUDY: pt c/o RT flank pain that started this morning. pt report he has RT kidney stone. denies any difficulties urianting. hx of Diverticula and GERD TECHNIQUE: CT scan of the abdomen and pelvis performed without intravenous and without oral contrast using helical scanning technique. Reconstructed coronal and sagittal MPR images reviewed. All images stored on PACS. Automated exposure control was used as a dose optimization technique for this examination. COMPARISON: None FINDINGS: The sensitivity for detection of visceral lesions is diminished without the use of intravenous contrast. LOWER CHEST: Irregular 7 mm density of the right lung base along the pleural surface on image number 5 is not clearly changed from previous. Minor chronic lung changes are seen in the bases. Prior gastric pull-through surgery is suspected. There is a large posterior diaphragmatic hernia containing peritoneal fat and portions of the transverse colon. LIVER: Normal size. No identified cystic or solid masses. GALLBLADDER: Unremarkable BILE DUCTS: No intrahepatic or extrahepatic ductal dilatation. SPLEEN: Normal size. No focal lesions. PANCREAS: No identified cystic or solid masses. No significant calcifications. No adjacent inflammation or peripancreatic fluid collections. Pancreatic duct not dilated. ADRENALS: Normal. KIDNEYS/URINARY TRACT: There is a 3 mm stone at the right ureterovesical junction. Mild prominence of the right ureter is seen without significant right hydronephrosis. Left kidney and ureter appear unremarkable. Urinary bladder is unremarkable. GI: No dilated bowel loops. No obvious wall thickening. Normal appendix. No significant diverticular disease. PERITONEUM: No ascites or free air. RETROPERITONEUM: No mass or adenopathy. REPRODUCTIVE: No significant abnormality. VASCULATURE: Diffuse atherosclerotic calcification is noted. MUSCULOSKELETAL: No significant abnormality. OTHER: No other abnormality. THIS IS AN ELECTRONICALLY VERIFIED FINAL REPORT 09/22/2024 4:48 PM - Electronically signed by Phil Briones M.D. KH: KRAIG Report ID: [id number] Reading Location: [id number] Procedure Note Phil Briones MD - 09/22/2024 EXAM DESCRIPTION: CT RENAL STONE STUDY (ABDOMEN AND PELVIS W/O CONTRAST) REASON FOR STUDY: pt c/o RT flank pain that started this morning. pt report he has RT kidney stone. denies any difficulties urianting. hx of Diverticula and GERD TECHNIQUE: CT scan of the abdomen and pelvis performed without intravenous and without oral contrast using helical scanning technique. Reconstructed coronal and sagittal MPR images reviewed. All images stored on PACS. Automated exposure control was used as a dose optimization technique for this examination. COMPARISON: None FINDINGS: The sensitivity for detection of visceral lesions is diminished without the use of intravenous contrast. LOWER CHEST: Irregular 7 mm density of the right lung base along the pleural surface on image number 5 is not clearly changed from previous. Minor chronic lung changes are seen in the bases. Prior gastric pull-through surgery is suspected. There is a large posterior diaphragmatic hernia containing peritoneal fat and portions of the transverse colon. LIVER: Normal size. No identified cystic or solid masses. GALLBLADDER: Unremarkable BILE DUCTS: No intrahepatic or extrahepatic ductal dilatation. SPLEEN: Normal size. No focal lesions. PANCREAS: No identified cystic or solid masses. No significant calcifications. No adjacent inflammation or peripancreatic fluid collections. Pancreatic duct not dilated. ADRENALS: Normal. KIDNEYS/URINARY TRACT: There is a 3 mm stone at the right ureterovesical junction. Mild prominence of the right ureter is seen without significant right hydronephrosis. Left kidney and ureter appear unremarkable. Urinary bladder is unremarkable. GI: No dilated bowel loops. No obvious wall thickening. Normal appendix. No significant diverticular disease. PERITONEUM: No ascites or free air. RETROPERITONEUM: No mass or adenopathy. REPRODUCTIVE: No significant abnormality. VASCULATURE: Diffuse atherosclerotic calcification is noted. MUSCULOSKELETAL: No significant abnormality. OTHER: No other abnormality. THIS IS AN ELECTRONICALLY VERIFIED FINAL REPORT 09/22/2024 4:48 PM - Electronically signed by Phil Briones M.D. KH: KRAIG Report ID: [id number] Reading Location: [id number] IMPRESSION: 1. 3 mm stone at the right ureterovesical junction with mild prominence of the right ureter. No significant right hydronephrosis. 2. Large posterior diaphragmatic hernia containing peritoneal fat and portions of the transverse colon. No evidence of bowel obstruction. 3. Irregular 7 mm density of the right lung base along the pleural surface is not clearly changed from previous. Pulmonary nodule recommendation: Per Fleischner Society Guidelines, follow-up CT of the complete chest after an appropriate interval (3 to 12 months depending on clinical risk) to confirm stability and to evaluate additional findings. Bailey Egan DOCTOR OF DENTAL MEDICINE, MEDICAL RECORDS COORDINATOR IMG CT ORDERABLES Final Result * CBC with Auto Differential (09/22/2024 4:25 PM CDT) WBC 6.49 4.00 - 12.00 10(3)/mcL 09/22/2024 4:43 PM CDT [facility] RBC 4.82 4.40 - 5.80 10(6)/mcL 09/22/2024 4:43 PM CDT [facility] HEMOGLOBIN (HGB) 14.7 13.0 - 16.5 g/dL 09/22/2024 4:43 PM CDT [facility] HEMATOCRIT (HCT) 42.6 38.0 - 50.0 % 09/22/2024 4:43 PM CDT [facility] MCV 88.4 82.0 - 96.0 fL 09/22/2024 4:43 PM CDT [facility] MCH 30.5 26.0 - 32.0 pg 09/22/2024 4:43 PM CDT [facility] MCHC 34.5 31.0 - 36.0 g/dL 09/22/2024 4:43 PM CDT [facility] PLATELET COUNT 210 140 - 440 10(3)/mcL 09/22/2024 4:43 PM CDT [facility] RDW 12.7 11.8 - 15.5 % 09/22/2024 4:43 PM CDT [facility] MPV 9.8 8.0 - 12.6 fL 09/22/2024 4:43 PM CDT [facility] NEUTROPHILS 57.8 40.0 - 68.0 % 09/22/2024 4:43 PM CDT [facility] LYMPHOCYTES 29.0 19.0 - 49.0 % 09/22/2024 4:43 PM CDT [facility] MONOCYTES 10.3 3.0 - 13.0 % 09/22/2024 4:43 PM CDT [facility] EOSINOPHILS 1.8 0.0 - 8.0 % 09/22/2024 4:43 PM CDT [facility] BASOPHILS 0.8 0.0 - 1.0 % 09/22/2024 4:43 PM CDT [facility] IMMATURE GRANULOCYTE 0.3 0.0 - 0.4 % 09/22/2024 4:43 PM CDT [facility] Comment:Immature Granulocyte s includes Metamyelocytes, Myelocytes, and Promyelocytes. ABSOLUTE NEUTROPHILS 3.75 1.40 - 5.30 10(3)/[facility] 09/22/2024 4:43 PM CDT [facility] ABSOLUTE LYMPHOCYTES 1.88 0.90 - 3.30 10(3)/[facility] 09/22/2024 4:43 PM CDT [facility] ABSOLUTE MONOCYTES 0.67 0.10 - 0.90 10(3)/[facility] 09/22/2024 4:43 PM CDT [facility] ABSOLUTE EOSINOPHIL 0.12 0.00 - 0.50 10(3)/[facility] 09/22/2024 4:43 PM CDT [facility] ABSOLUTE BASOPHILS 0.05 0.00 - 0.10 10(3)/[facility] 09/22/2024 4:43 PM CDT [facility] ABSOLUTE IMMATURE GRANULOCYTE 0.02 0.00 - 0.03 10 (3) mcL. 09/22/2024 4:43 PM CDT [facility] NRBC PER 100 WBC 0 09/23/19 4:43 PM [facility] Blood Venipuncture / Unknown 09/22/2024 4:25 PM CDT 09/22/2024 4:38 PM CDT us Bailey Egan APRN, CNP HEMATOLOGY ORDERAB LES Final Result [facility] [address] [place] [address] * (ABNORMAL) Comprehensive Metabolic Panel (Cmp) [id number] (09/22/2024 4:25 PM CDT) SODIUM 140 136 - 145 mmol/L 09/22/2024 5:11 PM CDT [facility] POTASSIUM 4.2 3.5 - 5.1 mmol/L 09/22/2024 5:11 PM CDT [facility] CHLORIDE 109(H) 98 - 107 mmol/L 09/22/2024 5:11 PM CDT [facility] CO2, VENOUS 23 22 - 30 mmol/L 09/22/2024 5:11 PM CDT [facility] ANION GAP 12.2 <18.0 mmol/L 09/22/2024 5:11 PM CDT [facility] GLUCOSE 86 70 - 99 mg/dL 09/22/2024 5:11 PM CDT [facility] BUN 19 8 - 26 mg/dL 09/22/2024 5:11 PM CDT [facility] CREATININE, BLOOD 1.29 0.70 - 1.30 mg/dL 09/22/2024 5:11 PM CDT [facility] BUN/CREATININE RATIO 15 12 - 20 ratio 09/22/2024 5:11 PM CDT [facility] TOTAL PROTEIN 7.4 6.0 - 8.0 g/dL 09/22/2024 5:11 PM CDT [facility] ALBUMIN 4.2 3.5 - 5.0 g/dL 09/22/2024 5:11 PM CDT [facility] A/G RATIO 1.3 1.0 - 2.2 09/22/2024 5:11 PM CDT [facility] CALCIUM 9.1 8.7 - 10.5 mg/dL 09/22/2024 5:11 PM CDT [facility] T BILI 0.4 0.2 - 1.2 mg/dL 09/22/2024 5:11 PM CDT [facility] SGOT (AST) 24 <43 U/L 09/22/2024 5:11 PM CDT [facility] SGPT (ALT) 16 <56 U/L 09/22/2024 5:11 PM CDT [facility] ALKALINE PHOSPHATASE 105 40 - 150 U/L 09/22/2024 5:11 PM CDT [facility] GFR, ESTIMATED >60 >=60 09/22/2024 5:11 PM CDT [facility] Comment: Creatinine Clearance is the preferred criteria for selecting drug dose adjustments in renally impaired patients. The GFR is provided as additional pertinent clinical information. GFR is reported in mL/min/1.73 sq m. Calculation based on the Chronic Kidney Disease Epidemiology Collaboration (CKD- EPI) equation refit without adjustment for race. GFR, EST. >60 >=60 025 5:11 PM CDT [facility] GFR, EST. NONAFRICAN 57(L) >=60 09/22/2024 5:11 PM CDT [facility] Blood Venipuncture / Unknown 09/22/2024 4:25 PM CDT 09/22/2024 4:38 PM CDT us Bailey Egan DOCTOR OF DENTAL MEDICINE, MEDICAL RECORDS COORDINATOR CHEMISTRY ORDERABL ES Final Result [facility] [address] [place] [address] * (ABNORMAL) Urinalysis (Ua) Macroscopic [id number] (09/22/2024 4:20 PM CDT) SPECIFIC GRAVITY 1.030 1.003 - 1.030 09/22/2024 5:31 PM CDT [facility] URINE PH 5.0 5.0 - 9.0 09/22/2024 5:31 PM CDT [facility] WBC ESTERASE Negative Negative 09/22/2024 5:31 PM CDT [facility] NITRITE Negative Negative 09/22/2024 5:31 PM CDT [facility] PROTEIN, RANDOM URINE 30 mg/dL(A) Negative 09/22/2024 5:31 PM CDT [facility] URINE GLUCOSE, QUAL 100 mg/dL(A) Negative 09/22/2024 5:31 PM CDT [facility] URINE KETONES 5 mg/dL(A) Negative 09/22/2024 5:31 PM CDT [facility] UROBILINOGEN Normal Normal mg/dL 09/22/2024 5:31 PM CDT [facility] URINE BLOOD 250 /uL(A) Negative johan/ul 09/22/2024 5:31 PM CDT [facility] URINALYSIS COLOR Yellow 09/23/19 5:31 PM CDT [facility] URINALYSIS CLARITY Slightly Cloudy 09/22/2024 5:31 PM CDT [facility] Urine Non-Phlebotomy Collection / Unknown 09/22/2024 4:20 PM CDT 09/22/2024 4:38 PM CDT Bailey Egan APRN, MEDICAL RECORDS COORDINATOR URINE ORDERABLES F inal Result [facility] [address] [place] [address] from Last 3 Months 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
== END 2024-11-27 15:16 | disposition home or self-care (01) ==
PROVIDERS: PCP Family Medicine; Visit Provider Nurse Practitioner Adult Health
DX: R91.1 Solitary pulmonary nodule (principal); T17.918A Gastric contents in respiratory tract, part unspecified causing other injury, initial encounter; N20.0 Calculus of kidney
CPT/HCPCS: 71046; 74018; 74176